=== PATIENT | male | born 1945 ===

== ENCOUNTER → 2024-06-15 09:10 | Outpatient (REF) | payer MEDICARE, BC, SELFPAY | LOC: HWRCS 09:10 | PROVIDERS: ATTENDING PHYSICIAN Nuclear Medicine Nuclear Cardiology; FAMILY PHYSICIAN Internal Medicine | DX: I10 Essential (primary) hypertension (principal); Z95.2 Presence of prosthetic heart valve | CPT/HCPCS: 93306 ==

== ENCOUNTER → 2025-05-09 10:10 | Outpatient (REF) | payer MEDICARE, BC, SELFPAY | LOC: HWRCS 10:10 | PROVIDERS: ATTENDING PHYSICIAN Nuclear Medicine Nuclear Cardiology; FAMILY PHYSICIAN Internal Medicine | DX: Z95.2 Presence of prosthetic heart valve (principal); I10 Essential (primary) hypertension; E78.2 Mixed hyperlipidemia | CPT/HCPCS: 93306 ==